=== PATIENT | female | born 1950 | race Caucasian/White ===

== ENCOUNTER 2017-01-30 09:12 | Emergency (ER) | payer MEDICARE ==
--- NOTE | 2017-01-30 10:05 | ER NURSING DOCUMENTATION ---
Nurse's Notes [facility] Name:Kalie Richmond Age:66 yrs Sex:Female :1950 Arrival Date:01/30/2017 Time:09:12 Bed6 Private MD:No PCP, Identified Diagnosis:Boxer's Fracture Presentation: 01/30 09:19 Acuity: [id number] sc1 09:21 Presenting complaint: Patient states: fell off of chair yesterday striking left hand on sc1 the kitchen counter. Swelling and bruising noted. Transition of care: Home. Notified ED Physician of patient's arrival and CC Ayden Calixto notified. 09:21 Method Of Arrival: Private Vehicle sc1 Triage Assessment: 09:22 General: Appears comfortable, well developed, well nourished, well groomed, Behavior is sc1 cooperative, pleasant. Pain: Complains of pain in medial aspect of left hand. 10:00 Musculoskeletal: Circulation, motion, and sensation intact Capillary refill < 3 seconds sc1 Reports. Injury Description: Deformity. Historical: - Allergies: No known drug Allergies; - Home Meds: 1. None - PMHx: None; - PSHx: None; - Ebola Screening: : Patient negative for fever greater than or equal to 101.5 degrees Fahrenheit, and additional compatible Ebola Virus Disease symptoms. Patient denies exposure to infectious person. Patient denies travel to an Ebola-affected area in the 21 days before illness onset. No symptoms or risks identified at this time. . - Immunization history: Flu Vaccine < 1 year. - Social history: Smoking status: Patient states was never smoker of tobacco. Patient/guardian denies using alcohol, street drugs, IV drugs, marijuana. Screenin:24 Infectious Disease Risk None. Abuse screen: Denies threats or abuse. Nutritional sc1 screening: No deficits noted. Vital Signs: 09:22 BP 126 / 71; Pulse 70; Resp 16; Temp 97.9; Pulse Ox 97% on R/A; sc1 ED Course: 09:14 Patient arrived in ED. ds 09:14 No PCP, Identified is Private Physician. ds 09:19 Nan Mccann, RN is Primary Nurse. sc1 09:19 Triage completed. sc1 09:23 Notified ED Physician of patient's arrival and chief complaint. Dr. Hensley notified. Arm sc1 band placed on Bed in low position Call Light in Reach HOB Elevated. Affected limb iced. 09:37 Assist Provider Assist provider with fracture care of left hand Fracture is closed. ny1 Obvious deformity is not noted. Circulation, motor and sensation is intact. Set up for procedure. Performed by Franklin Hensley MD Reduction was not performed. Immobilized with OCL splint, Post immobilization, circulation, motor and sensation remain intact. Patient tolerated well. 09:40 Franklin Hensley MD is Attending Physician. halima 09:56 Ran Belle DO, Vipin Wing MD is Referral Physician. 10:00 Valuables Remains with patient. ny1 Administered Medications: No medications were administered Outcome: 09:57 Discharge ordered by . 10:00 Discharged to home ambulatory. [facility] [place] 10:00 Condition: improved 10:00 Discharge instructions given to patient, Instructed on discharge instructions, follow up and referral plans. medication usage, Demonstrated understanding of instructions. 10:04 Patient left the ED. [facility] [place] 01/31 14:59 Discharge F/U Call: Unable to reach: left voicemail: tg 17:17 Discharge F/U Call: Spoke with: patient. other: Name: pt is still waiting to here tg from the Orthopedic dr. Signatures: Handy Gray RN RN tg Nan Mccann, CHASE RN sc1 [place], Milka, Reg Reg ds Franklin Hensley MD MD jm
--- NOTE | 2017-01-30 10:05 | ER PHYSICIAN DOCUMENTATION ---
Physician Documentation [facility] Name:Kalie Richmond Age:66 yrs Sex:Female :1950 Arrival Date:01/30/2017 Time:09:12 Bed6 Private MD:No PCP, Identified ED Franklin Hensley Disposition: 01/30/17 09:57 Discharged to Home/Self Care. Impression: Boxer's Fracture. - Condition is Good. - Discharge Instructions: FRACTURE, Hand [Closed]. - Prescriptions for Hydrocodone- Acetaminophen 5-325 mg Oral - take 1 tablet by ORAL route every 6 hours As needed; 15 tablet. - Medical Reconciliation form form. - Follow up: Ran Belle DO, Vipin Wing MD; When: 1 week; Reason: Continuance of care. - Problem is new. - Symptoms have improved. - Notes: You will get a phone call from our Orthopedist's nurse about an appointment time for next week. HPI: 01/30 09:40 This 66 yrs old Female presents to ER via Private Vehicle with complaints of jm Hand Injury - LEFT. 09:40 The patient or guardian reports a contusion, injury. The complaints affect the medial jm aspect of left hand. Context: resulted from a direct blow. Onset: The symptom(s)/episode began/occurred just prior to arrival, today. Associated signs and symptoms: Pertinent negatives: numbness distally. The patient has not experienced similar symptoms in the past. Pt hit her hand on a counter top. . Historical: - Allergies: No known drug Allergies; - Home Meds: 1. None - PMHx: None; - PSHx: None; - Ebola Screening: : Patient negative for fever greater than or equal to 101.5 degrees Fahrenheit, and additional compatible Ebola Virus Disease symptoms. Patient denies exposure to infectious person. Patient denies travel to an Ebola-affected area in the 21 days before illness onset. No symptoms or risks identified at this time. . - Immunization history: Flu Vaccine < 1 year. - Social history: Smoking status: Patient states was never smoker of tobacco. Patient/guardian denies using alcohol, street drugs, IV drugs, marijuana. ROS: 09:59 MS/extremity: Positive for injury or acute deformity, pain, swelling, tenderness. jm 09:59 Skin: Positive for swelling. 09:59 Neuro: Negative for numbness. Exam: 09:59 Constitutional: The patient appears alert, awake. 09:59 Musculoskeletal/extremity: Extremities: grossly normal except: noted in the medial aspect of left hand: decreased ROM, pain, ROM: limited active range of motion due to pain, in the medial aspect of left hand, limited passive range of motion due to pain. 09:59 Skin: Appearance: Color: pink, swelling, noted on the medial aspect of left hand, that are moderate. 09:59 Neuro: Mentation: is normal, Memory: is normal. 09:59 Psych: Behavior/mood is pleasant, cooperative, Affect is calm. Vital Signs: 09:22 BP 126 / 71; Pulse 70; Resp 16; Temp 97.9; Pulse Ox 97% on R/A; sc1 Procedures: 10:00 Splinting: Splint applied to medial aspect of left hand using Orthoglass splint, jm applied by myself. Examined by me, post splint application: neurovascular intact, brisk capillary refill noted, Patient tolerated well. MDM: 09:22 Patient medically screened. 10:01 Differential diagnosis: open fracture. Data reviewed: vital signs, nurses notes, halima radiologic studies, and as a result, I will discharge patient, initiate a consult, with an orthopedic surgeon. Test interpretation: by ED physician or midlevel provider: plain radiologic studies. Counseling: I had a detailed discussion with the patient and/or guardian regarding: the historical points, exam findings, and any diagnostic results supporting the discharge/admit diagnosis, radiology results, the need for outpatient follow up, a hand specialist, a orthopedic surgeon. Physician consultation: MD Ran Zepeda DO regarding outpatient follow-up, and will see patient next week. 01/30 14:06 Order name: HAND; [address] [place] [id number] EDMS Dispensed Medications: No medications were administered Signatures: Nan Mccann, CHASE RN sc1 Franklin Hensley MD MD jm
--- NOTE | 2017-01-30 13:50 | RADIOLOGY REPORT ---
Three views of the left hand demonstrates an oblique fracture of the distal shaft of the left fifth metacarpal. There is approximately 5 mm of overriding and 5 mm of radial displacement. I do not identify intraarticular involvement. No other abnormality is identified. The visualized joints appear unremarkable. IMPRESSION: Displaced distal shaft fracture of the left fifth metacarpal. MTDD
== END 2017-01-30 10:05 | disposition home or self-care (01) ==
LOC: ER 09:12
DX: S62.317A Displaced fracture of base of fifth metacarpal bone, left hand, initial encounter for closed fracture (principal); W22.8XXA Striking against or struck by other objects, initial encounter
CPT/HCPCS: 29125; 73130; 99284